=== PATIENT | female | born 2000 | race Caucasian/White ===

== ENCOUNTER 2018-11-03 10:43 | Outpatient (CLI) | payer OTHER, MEDICAID, SELFPAY ==
--- NOTE | 2018-11-03 11:00 | DI.US_ITS ---
SYMPTOMS/DIAGNOSIS: PAINFUL LUMP IN RIGHT BREAST, N63.10 RIGHT BREAST ULTRASOUND: The patient has a tender palpable abnormality in the lateral right breast. There is a 10 x 4 x 8 mm circumscribed ovoid hypoechoic lesion corresponding to the palpable abnormality located at 9 o'clock 5 cm from the nipple. The findings likely represent a small proteinaceous cyst. No suspicious abnormalities are identified. IMPRESSION: Category 2, negative ultrasound with benign findings.
== END 2018-11-03 11:03 ==
PROVIDERS: PCP Pediatrics; Visit Provider Nurse Practitioner Family
DX: N63.11 Unspecified lump in the right breast, upper outer quadrant (principal); N60.01 Solitary cyst of right breast
CPT/HCPCS: 76642

== ENCOUNTER 2019-09-20 07:36 | Outpatient (CLI) | payer OTHER, MEDICAID, SELFPAY ==
--- NOTE | 2019-09-20 07:37 | DI.RAD_ITS ---
EXAM: XR RIBS ONLY RT INDICATION: mass r rib R22.9. COMPARISON: No exams were available for comparison TECHNIQUE: 2D digital imaging was performed. FINDINGS: The bones are unremarkable. No rib lesion is seen. The visualized lung appears clear. No effusion or pneumothorax is identified. IMPRESSION: Unremarkable.
== END 2019-09-20 07:56 ==
PROVIDERS: Visit Provider Pediatrics
DX: R22.2 Localized swelling, mass and lump, trunk (principal)
CPT/HCPCS: 71100

== ENCOUNTER 2019-09-30 11:01 | Outpatient (REF) | payer OTHER, MEDICAID, SELFPAY ==
--- NOTE | 2019-09-30 09:25 | PAPFT_PTH ---
PATIENT: HONG CHRISTIANSON LOC: [facility] U#:[id number] AGE/SX: 19/F ROOM: RE09/30/[address]: MARCY Stinson : 2000 BED: DIS: 09/30/2019 SPEC #: [id number] RECD: 09/30/19 12:47 STATUS: JOYCE REAlvarez #: [id number] STEPHANIE: 09/30/19 09:[address]: Glendy Gambino DEPT: [facility] Cytology RECD BY: Kim Renteria ENTERED: 09/30/19 12:47 SP TYPE: PAPFT KAPIL DR: MARCY Garcia Tissues: 1 - CX/ENDOCX FOR PAP SMEARS Procedures: PAP THIN PREP/[facility] Screening Comments: [id number]
[2019-10-03 13:15] LABS: Chlamydia Result Negative (Negative); GC Result Negative (Negative)
== END 2019-09-30 11:21 ==
LOC: LBN 11:01
PROVIDERS: PCP Nurse Practitioner Family; Visit Provider Nurse Practitioner Family
DX: Z11.3 Encounter for screening for infections with a predominantly sexual mode of transmission (principal); Z12.4 Encounter for screening for malignant neoplasm of cervix
CPT/HCPCS: 87491; 87591; 88142

== ENCOUNTER 2019-10-31 10:58 | Outpatient (CLI) | payer OTHER, MEDICAID, SELFPAY ==
[2019-10-31 13:08] LABS: Anion Gap 12.3 mmol/L (3-11); BUN 10 mg/dL (7-18); CO2 25.7 mmol/L (21.0-32.0); CREATININE 0.87 mg/dL (0.55-1.02); Calcium 9.4 mg/dL (8.5-10.1); Calculated LDL 45 mg/dL (<100); Chloride 103 mmol/L (98-107); Cholesterol 116 mg/dL (<200); Glucose 91 mg/dL (74-106); HDL Cholesterol 63 mg/dL (40-60); Potassium 3.9 mmol/L (3.5-5.1); Sodium 141 mmol/L (136-145); Triglyceride 43 mg/dL (<150)
== END 2019-10-31 11:18 ==
PROVIDERS: PCP Nurse Practitioner Family; Visit Provider Nurse Practitioner Family
DX: Z00.00 Encounter for general adult medical examination without abnormal findings (principal); Z13.220 Encounter for screening for lipoid disorders; Z13.228 Encounter for screening for other metabolic disorders
CPT/HCPCS: 36415; 80048; 80061

== ENCOUNTER 2020-08-24 04:28 | Outpatient (CLI) | payer OTHER, MEDICAID, SELFPAY ==
[2020-08-26 22:32] LABS: Patient Race White; SARS-CoV-2 RNA Undetected (Undetected); SARS-CoV-2 Specimen Source Nasal
== END 2020-08-24 04:48 ==
PROVIDERS: PCP Nurse Practitioner Family; Visit Provider Nurse Practitioner Family
DX: Z20.828 Contact with and (suspected) exposure to other viral communicable diseases (principal)
CPT/HCPCS: U0003

== ENCOUNTER 2020-10-04 09:47 | Outpatient (REF) | payer OTHER, MEDICAID, SELFPAY ==
--- NOTE | 2020-10-04 09:30 | PAPFT_PTH ---
PATIENT: HONG CHRISTIANSON LOC: [facility] U#:[id number] AGE/SX: 20/F ROOM: RE10/04/[address]: MARCY Stinson : 2000 BED: DIS: 10/04/2020 SPEC #: [id number] RECD: 10/04/20 12:49 STATUS: ELVIRAAbraham REQ #: [id number] STEPHANIE: 10/04/20 09:[address]: Glendy Gambino DEPT: [facility] Cytology RECD BY: Kim Renteria ENTERED: 10/04/20 12:50 SP TYPE: PAPFT OT DR: MARCY Garcia Tissues: 1 - CX/ENDOCX FOR PAP SMEARS Procedures: PAP THIN PREP/[facility] Screening Comments: [id number]
== END 2020-10-04 10:07 ==
LOC: LBN 09:47
PROVIDERS: PCP Nurse Practitioner Family; Visit Provider Nurse Practitioner Family
DX: Z12.4 Encounter for screening for malignant neoplasm of cervix (principal)
CPT/HCPCS: 88142

== ENCOUNTER 2020-11-05 03:19 | Outpatient (CLI) | payer OTHER, MEDICAID, SELFPAY ==
[2020-11-09 13:02] LABS: TB Interpretation Negative (Negative); TB1 Ag minus Nil 0.01 IU/ml
== END 2020-11-05 03:20 | disposition home or self-care (01) ==
LOC: LBO 03:20
PROVIDERS: PCP Nurse Practitioner Family; Visit Provider Nurse Practitioner Family
DX: Z00.00 Encounter for general adult medical examination without abnormal findings (principal)
CPT/HCPCS: 36415; 86480